=== PATIENT | male | born 1975 | race Caucasian/White ===

== ENCOUNTER 2024-02-25 04:52 | Emergency (ER) | payer OTHER ==
[~2024-02-25] VITALS: Ht 170.2 cm; Wt 102.0 kg
[2024-02-25 05:31] VITALS: TEMP 36.83628; O2SAT 96
[2024-02-25 05:39] VITALS: BP 160/99; PULSE 85; RESP 17; TEMP 98.3; O2SAT 96
[2024-02-25] MEDS ORDERED: ACETAMINOPHEN 325MG TABLET PO ONE (09:00)
== END 2024-02-25 07:40 | disposition home or self-care (01) ==
LOC: ER 04:52
DX: B34.9 Viral infection, unspecified (principal); E78.00 Pure hypercholesterolemia, unspecified; I10 Essential (primary) hypertension
CPT/HCPCS: 99281